=== PATIENT | female | born 1950 | race Caucasian/White ===

== ENCOUNTER 2020-11-12 17:30 | Emergency (ER) | payer MEDICARE, OTHER, SELFPAY ==
[2020-11-12 17:38] VITALS: BP 142/79; PULSE 93; RESP 18; TEMP 36.5; O2SAT 98
[2020-11-12 17:41] VITALS: TEMP 36.5
[2020-11-12 19:44] VITALS: BP 142/80; PULSE 77; RESP 16; O2SAT 97
--- NOTE | 2020-11-12 20:32 | ED.WOUNDLAC ---
HPI - Wound/Laceration General Chief Complaint: Wound/Laceration Stated Complaint: Puncture Would In Calf From Tree Time Seen by Provider: 11/12/20 20:31 Source: patient Mode of arrival: Ambulatory Limitations: no limitations History of Present Illness HPI narrative: 70-year-old female nonsmoker with noncontributory medical history presents with her in the chief complaint of an accidental laceration to her anterior art. She was working with a heavy log which fell and landed on her leg causing a flap like laceration. 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 She denies any fever chills. She has pain with ambulation improvement with rest. She denies numbness, tingling or weakness and otherwise well and free of complaint Onset (ago): hour(s) Extremity Location: Right: lower leg Place: outdoors Patient tetanus UTD: No Context: accidental Associated symptoms: pain Related Data Previous Rx's Medication Instructions Recorded cephalexin 500 mg PO Q6H 7 Days #28 cap 11/12/20 Allergies Allergy/AdvReac Type Severity Reaction Status Date / Time ofloxacin [From Floxin] Allergy Verified 11/12/20 17:41 Corticosteroids AdvReac Verified 11/12/20 17:41 (Glucocorticoids) Review of Systems Constitutional Constitutional: Denies chills, Denies fatigue, Denies fever(s), Denies frequent falls, Denies lethargy and Denies weakness Eyes Eyes: Denies change in vision, Denies eye discharge, Denies irritation and Denies loss of vision ENT Ears, Nose, Mouth, and Throat: Denies change in voice, Denies dizziness, Denies neck pain, Denies sore throat and Denies throat swelling Cardiovascular Cardiovascular: Denies chest pain, Denies irregular heart rhythm, Denies lightheadedness, Denies palpitations, Denies dyspnea, Denies dyspnea on exertion and Denies orthopnea Respiratory Respiratory: Denies cough, Denies dyspnea, Denies dyspnea on exertion and Denies wheezing Gastrointestinal Gastrointestinal: Denies abdominal pain, Denies change in bowel habits, Denies diarrhea, Denies nausea and Denies vomiting Musculoskeletal Musculoskeletal: Denies neck pain and Denies numbness Integumentary/Breasts Skin/Breast: Denies pruritus, Denies erythema, Denies rash and Reports wounds Neurologic Neurologic: Denies behavioral changes, Denies confusion, Denies dizziness, Denies frequent falls, Denies loss of vision, Denies numbness and Denies weakness Psychiatric Psychiatric: Denies anxiety, Denies behavioral changes, Denies confusion, Denies depression, Denies homicidal ideation and Denies suicidal ideation Endocrine Endocrine: Denies fatigue, Denies flushing and Denies palpitations Hematologic/Lymphatic Hematologic/Lymphatic: Denies easy bruising Allergic/Immunologic Allergic/Immunologic: Denies urticaria, Denies throat swelling and Denies wheezing Patient History Smoking Status: Never smoker alcohol intake frequency: 0-2 drinks per day Substance Use Type: does not use Exam Narrative Exam Narrative: GEN: AOx3 and in mild distress EYES: Pupils are equal, round, and reactive to light and accommodation. Extraoccular muscles are intact bilaterally. There is no subconjunctival hemorrhage or exudate. CHEST: Lungs are clear to auscultation bilaterally and free of wheezes, rales, or rhonchi. Heart rate is regular rhythm, there are no murmurs, clicks, rubs, or gallops. There is no chest wall tenderness. ABD: Abdomen is soft and nontender. There is no guarding or rebound. Bowel sounds are normal in all 4 quadrants. There is no mass or organomegaly. EXT: Full painless ROM of all extremities with no loss of sensation or strength. SKIN: 3 x 3 cm flap laceration right anterior mid art. Superficial with very thin skin layer and some tears along the leading edge as well as mild exposure of subcutaneous fat. No foreign bodies noted. Clean wound. No muscle or bone viewed. Otherwise Warm, pink, and dry. No erythema or rash Initial Vital Signs Initial Vital Signs: Vital Signs Temperature 97.7 F 11/12/20 17:38 Pulse Rate 93 H 11/12/20 17:38 Respiratory Rate 18 11/12/20 17:38 Blood Pressure 142/79 H 11/12/20 17:38 Pulse Oximetry 98 11/12/20 17:38 Procedures Laceration Repair Laceration 1: Site: lower extremity Side (If applicable): right Size (cm): 6 Description: flap Depth: simple, single layer Local Anesthetic: lidocaine 1% and with bicarb Amount of anesthesia used (mL): 5 Pre-repair: wound explored, irrigated extensively and deep structures intact Skin layer closed with: nylon Size (cm): 4-0 Number of sutures: 5 Technique: simple, interrupted Subcutaneous layer closed with: vicryl Size: 4-0 Number of sutures: 1 Technique: simple, interrupted Course Orders Ordered: Discontinued Medications Cefazolin Sodium (Cephalexin 250 Mg Prepack) 1 bottle MISC SEEINSTR ONE Stop: 11/12/20 21:32 Last Admin: 11/12/20 21:38 Dose: 500 mg Documented by: KADI Diphtheria/Tetanus/Acell Pertussis (Tet,Diph,Pertuss(Acell),Vac/Pf 0.5 Ml Syringe) 0.5 ml IM .ONCE ONE Stop: 11/12/20 21:03 Last Admin: 11/12/20 21:07 Dose: 0.5 ml Documented by: KADI Lidocaine/Sodium Bicarbonate (Lido 1%/Sod Bicarb 8.4% (10ml) 10 Ml Syringe) 10 ml INJ NOW ONE Stop: 11/12/20 21:03 Last Admin: 11/12/20 21:07 Dose: 10 ml Documented by: KADI Vital Signs Vital signs: Vital Signs - 8 hr 11/12/20 21:52 Pulse Rate 76 Respiratory Rate 16 Blood Pressure 151/83 H Pulse Oximetry 99 Discharge Plan Departure Patient Disposition: Home Clinical Impression: Laceration Instructions: DI for Laceration Repair Activity Restrictions/Additional Instructions: *You have been diagnosed with [avulsion laceration with tetanus update] *What to do: *Take medications as directed * Please keep the wound clean and dry to the best of your ability. Please monitor for signs of infection such as redness to the skin or increasing pain. Have the sutures removed by your doctor in about 7 days. If you are unable to get into your doctor, we would be happy to remove the sutures in that same timeframe. *Follow up with your primary care provider in 2-3 days, call for an appointment. Let them know you were seen in the Emergency Department and that we ask that you be seen in follow up *Return to ER if you should have any new, worsening or concerning symptoms Prescriptions: New cephalexin 500 mg capsule 500 mg PO Q6H 7 Days Qty: 28 RF: 0
[2020-11-12] MEDS: TET,DIPH,PERTUSS(ACELL),VAC/PF 0.5 ML SYRINGE IM (21:07)
[2020-11-12] MEDS: LIDO 1%/SOD BICARB 8.4% (10ML) 10 ML SYRINGE INJ (21:07)
[2020-11-12] MEDS: cephALEXin 250 MG PREPACK 1 BOTTLE MISC (21:38)
[2020-11-12 21:52] VITALS: BP 151/83; PULSE 76; RESP 16; O2SAT 99
== END 2020-11-12 21:52 | disposition home or self-care (01) ==
PROVIDERS: Emergency Provider Emergency Medicine
DX: S81.811A Laceration without foreign body, right lower leg, initial encounter (principal); W22.8XXA Striking against or struck by other objects, initial encounter; Z23 Encounter for immunization
CPT/HCPCS: 12002; 90471; 99283; 99284; 90715

== ENCOUNTER 2023-05-18 10:30 | Outpatient (RCR) | payer MEDICARE, SELFPAY ==
--- NOTE | 2023-05-06 09:00 | PT.OPPOC ---
Physical, Occupational & Speech Therapy At [facility] Current Diagnoses Other chronic pain (05/06/23) Pain in right knee (05/06/23) Pain in left knee (05/06/23) Visit Care Team Role Provider Type Seymour Rollins PA-C Attending Provider Non-Staff Family Provider Primary Care Provider Referring Provider Specialty: Medical Address: [address] [place] [address], [id number] Email: Plan Of Care PT-OP-T Assessment and Plan Start: 05/06/23 08:59 Freq: Status: Active Protocol: Document 05/06/23 09:00 AM (Rec: 05/06/23 16:30 AM [id number]) Physical Therapy Assessment Rehab Potential Rehabilitation Potential Excellent Evaluation Complexity Number of Personal Factors/Comorbidities 0 Number of Body Systems Impaired 1-2 Clinical Presentation at Evaluation Stable Impairments Impairments Activity Tolerance,Balance, Functional Mobility,Pain,ROM, Soft Tissue Mobility,Strength Goals Discomfort Impairment Knee discomfort Impairment Pt reports 7/10 knee discomfort at the worst. Short Term Goal (STG) Pt to report 4/10 knee discomfort at the worst. STG Duration 05/27/23 Site Engineer Goal (LTG) Pt to report 2/10 knee discomfort at the worst. LTG Duration 06/17/23 Knee ROM Impairment Knee ROM Impairment R knee flexion at 132 deg and painful. L at 140 deg Site Engineer Goal (LTG) R=L knee flexion ROM LTG Duration 06/17/23 Squat Impairment Discomfort with squatting. Impairment Pt unable to squat without increase in knee discomfort. Short Term Goal (STG) Pt able to do STS squats without increase in knee discomfort. Pt able to do 15 squats in 30 sec. STG Duration 05/27/23 Site Engineer Goal (LTG) Pt able to do functional squat without increase in knee discomfort. LTG Duration 06/17/23 Kneeling Impairment Kneeling ability Impairment Pt unable to kneel currently secondary to increase in R knee discomfort. Fdc Goal (LTG) Pt able to kneel without increase in R knee discomfort LTG Duration 06/17/23 Assessment Summary Assessment Ashlie Mantilla presents to PT to address bilateral knee pain, with R knee being primary concern today. Pt with hx of bilateral knee arthroplasty surgery in 1995. Pt with recent exacerbation of R knee pain in November 2022. Pt c/o of difficulty with squatting motions and kneeling on R knee . Pt demonstrates limited knee ROM on R compared to L and presentation of edema at R knee. Pt with PTP tenderness at lateral and medial infrapatellar region, though no pain with palpation of patellar tendon. Pt demonstrates good R LE flexibility at hamstrings and hip flexors. Pt given knee desensitization technique ( standing supported weightbearing on R knee at chair). Pt with discomfort with CKC squatting today, though did not demonstrate movement faults. Pt would benefit from continued PT to progress strength and mobility to decrease knee pain with functional tasks. Physical Therapy Plan Frequency and Duration Frequency of Treatment 2x/Week Duration of treatment (weeks) 6 Plan of Care Start Date 05/06/23 Plan of Care End Date 06/17/23 Therapeutic Interventions Therapeutic Interventions Balance Training,Gait Training ,Home Exercise Program,Joint Mobilizations,Manual Therapy, Neuromuscular Re-education, Patient/Caregiver Education, Self-Care/Home Management,Soft Tissue Mobilization, Therapeutic Activities, Therapeutic Exercises Modalities Cold Pack/Ice Massage,Electric Stimulation,Hot Packs, Ultrasound Next Visit Focus/Plan Next Note Type Treatment Note Next Visit Plan Initiate manual techniques to decrease scar tissue restrictions, initiate CKC on shuttle recovery, progress LE strengthening Plan of Care Dates Plan of Care Start Date 05/06/23 Plan of Care End Date 06/17/23 Electronically Signed by: Tami Armando, PT 05/06/23 [id number] If you are in agreement with this Plan of Care, please return a signed and dated copy. I have reviewed this Plan of Care and certify that the skilled therapy services above are required to meet the patient?s needs. Physician Signature Date Printed Name and Credentials Clinical Instructor Signature Printed Name and Credentials
--- NOTE | 2023-05-06 09:00 | PT.OIE ---
Current Diagnoses Other chronic pain (05/06/23) Pain in right knee (05/06/23) Pain in left knee (05/06/23) Visit Care Team Role Provider Type Seymour Rollins PA-C Attending Provider Non-Staff Family Provider Primary Care Provider Referring Provider Specialty: Medical Address: [address] [place] [address], [id number] Email: Physical Therapy Initial Evaluation PT-OP-A Visit Information Start: 05/06/23 08:59 Freq: Status: Active Protocol: Document 05/06/23 09:00 AM (Rec: 05/06/23 16:30 AM [id number]) Out-Patient Physical Therapy Visit Information Visit Information Visit Type Initial Evaluation Visit Start Time 09:03 Visit Stop Time 09:48 Total Visit Minutes 45 Visit Number 1 Number of IRONER HAND Visits 0 Evaluation Information Evaluation Date 05/06/23 PT-OP-B Current Condition Start: 05/06/23 08:59 Freq: Status: Active Protocol: Document 05/06/23 09:00 AM (Rec: 05/06/23 16:30 AM [id number]) Current Condition History of Current Condition Onset Date Chronic with exacerbation in November Current Complaints R knee pain History of Current Condition Bilateral knee pain. Pt has scar tissue on bilateral knees from arthroscopic surgery from 1995. Pt reports that her right knee pain is worse. Pt reports that pain is patellar. Pt exacerbated her R knee pain in November from moving some furniture and twisting her knee while on her knees. Pt would like to avoid TKA at this time. Pt reports pain is associated with movement. At rest, she has no pain. Pt reports that she has bunions at bilateral feet. Pt lives in 2 ten sleep home and goes up and down the stairs a lot and report intermittent pain with steps. Pt does a lot of walking. Future Testing and Treatments Planned No f/u scheduled Prior Functional Status Baseline Function- ADL's Independent Baseline Function- Mobility Independent Current Functional Impairments (Reported) Functional Limitations- ADL's Pt reports difficulty with activities that involve squatting. Pt did CPR training recently and could not kneel on R knee. 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 PT-OP-C Subjective Start: 05/06/23 08:59 Freq: Status: Active Protocol: Document 05/06/23 09:00 AM (Rec: 05/06/23 16:30 AM [id number]) OP-PT Pain Assessment Pain Assessment Grid Paper Pain Assessment Grid Completed Yes Location Bilateral Knee Pain Location Details inferior peripatellar pain bilaterally, R worse than L. Intensity 0 Scale Used Numeric (0 - 10) Description Sharp Description- Other 6-7/10 Frequency Intermittent Pain Aggravating Factors Activity,Stair Climbing, Bending Other Pain Aggravating Factors Difficulty with sit-stand transfers PT-OP-D Balance Start: 05/06/23 08:59 Freq: Status: Active Protocol: Document 05/06/23 09:00 AM (Rec: 05/06/23 16:30 AM [id number]) Balance Tests Single Limb Standing Single Limb- Right 10 sec on R Single Limb- Left 6 sec on L PT-OP-E Functional Tests Start: 05/06/23 08:59 Freq: Status: Active Protocol: Document 05/06/23 09:00 AM (Rec: 05/06/23 16:30 AM [id number]) Functional Tests 30 Second Sit to Stand Test Score 11 Comments 18.5 in hi-low table, pt reports some discomfort PT-OP-K Range of Motion Start: 05/06/23 08:59 Freq: Status: Active Protocol: Document 05/06/23 09:00 AM (Rec: 05/06/23 16:30 AM [id number]) Knee Goniometric Range of Motion Knee Right Patient Position Supine Flexion Active (degrees) 132 Extension Active (degrees) 5 Left Patient Position Supine Flexion Active (degrees) 140 Extension Active (degrees) 5 PT-OP-M Strength Start: 05/06/23 08:59 Freq: Status: Active Protocol: Document 05/06/23 09:00 AM (Rec: 05/06/23 16:30 AM [id number]) Hip Strength Hip Manual Muscle Testing Right Flexion (L2) 4 Good Abduction 4 Good Adduction 4+ Good+ External Rotation 4- Good- Internal Rotation 4- Good- Comments Glute med 4-/5. Pt demonstrates compensation with hip flexors Left Flexion (L2) 4 Good Abduction 4 Good Adduction 4+ Good+ External Rotation 4- Good- Internal Rotation 4- Good- Knee Strength Knee Manual Muscle Testing Right Flexion (S2) 4- Good- Extension (L3) 4 Good Left Flexion (S2) 4- Good- Extension (L3) 4 Good PT-OP-Q Treatments Start: 05/06/23 08:59 Freq: Status: Active Protocol: Document 05/06/23 09:00 AM (Rec: 05/06/23 16:30 AM [id number]) Therapeutic Exercises Supine Exercises SLR Supine Exercise Name SLR Side right Reps/Minutes x10 Sidelying Exercises Clamshell Sidelying Exercise Name Clamshell Side right Reps/Minutes x10 PT-OP-T Assessment and Plan Start: 05/06/23 08:59 Freq: Status: Active Protocol: Document 05/06/23 09:00 AM (Rec: 05/06/23 16:30 AM [id number]) Physical Therapy Assessment Rehab Potential Rehabilitation Potential Excellent Evaluation Complexity Number of Personal Factors/Comorbidities 0 Number of Body Systems Impaired 1-2 Clinical Presentation at Evaluation Stable Impairments Impairments Activity Tolerance,Balance, Functional Mobility,Pain,ROM, Soft Tissue Mobility,Strength Goals Discomfort Impairment Knee discomfort Impairment Pt reports 7/10 knee discomfort at the worst. Short Term Goal (STG) Pt to report 4/10 knee discomfort at the worst. STG Duration 05/27/23 Brazer Resistance Goal (LTG) Pt to report 2/10 knee discomfort at the worst. LTG Duration 06/17/23 Knee ROM Impairment Knee ROM Impairment R knee flexion at 132 deg and painful. L at 140 deg Brazer Resistance Goal (LTG) R=L knee flexion ROM LTG Duration 06/17/23 Squat Impairment Discomfort with squatting. Impairment Pt unable to squat without increase in knee discomfort. Short Term Goal (STG) Pt able to do STS squats without increase in knee discomfort. Pt able to do 15 squats in 30 sec. STG Duration 05/27/23 Brazer Resistance Goal (LTG) Pt able to do functional squat without increase in knee discomfort. LTG Duration 06/17/23 Kneeling Impairment Kneeling ability Impairment Pt unable to kneel currently secondary to increase in R knee discomfort. Fci Goal (LTG) Pt able to kneel without increase in R knee discomfort LTG Duration 06/17/23 Assessment Summary Assessment Ashlie Mantilla presents to PT to address bilateral knee pain, with R knee being primary concern today. Pt with hx of bilateral knee arthroplasty surgery in 1995. Pt with recent exacerbation of R knee pain in November 2022. Pt c/o of difficulty with squatting motions and kneeling on R knee . Pt demonstrates limited knee ROM on R compared to L and presentation of edema at R knee. Pt with PTP tenderness at lateral and medial infrapatellar region, though no pain with palpation of patellar tendon. Pt demonstrates good R LE flexibility at hamstrings and hip flexors. Pt given knee desensitization technique ( standing supported weightbearing on R knee at chair). Pt with discomfort with CKC squatting today, though did not demonstrate movement faults. Pt would benefit from continued PT to progress strength and mobility to decrease knee pain with functional tasks. Physical Therapy Plan Frequency and Duration Frequency of Treatment 2x/Week Duration of treatment (weeks) 6 Plan of Care Start Date 05/06/23 Plan of Care End Date 06/17/23 Therapeutic Interventions Therapeutic Interventions Balance Training,Gait Training ,Home Exercise Program,Joint Mobilizations,Manual Therapy, Neuromuscular Re-education, Patient/Caregiver Education, Self-Care/Home Management,Soft Tissue Mobilization, Therapeutic Activities, Therapeutic Exercises Modalities Cold Pack/Ice Massage,Electric Stimulation,Hot Packs, Ultrasound Next Visit Focus/Plan Next Note Type Treatment Note Next Visit Plan Initiate manual techniques to decrease scar tissue restrictions, initiate CKC on shuttle recovery, progress LE strengthening
--- NOTE | 2023-05-08 15:14 | PT.OTN ---
Current Diagnoses Other chronic pain (05/08/23) Pain in right knee (05/08/23) Pain in left knee (05/08/23) Physical Therapy Treatment Note PT-OP-A Visit Information Start: 05/06/23 08:59 Freq: Status: Active Protocol: Document 05/08/23 15:14 AM (Rec: 05/08/23 17:41 AM [id number]) Out-Patient Physical Therapy Visit Information Visit Information Visit Type Treatment Note Visit Start Time 15:15 Visit Stop Time 16:00 Total Visit Minutes 45 Visit Number 2 Number of FISCAL OFFICER Visits 0 Precautions Precautions tape/latex allergy PT-OP-B Current Condition Start: 05/06/23 08:59 Freq: Status: Active Protocol: Document 05/08/23 15:14 AM (Rec: 05/08/23 17:41 AM [id number]) Current Condition History of Current Condition Onset Date Chronic with exacerbation in November Current Complaints R knee pain History of Current Condition Bilateral knee pain. Pt has scar tissue on bilateral knees from arthroscopic surgery from 1995. Pt reports that her right knee pain is worse. Pt reports that pain is patellar. Pt exacerbated her R knee pain in November from moving some furniture and twisting her knee while on her knees. Pt would like to avoid TKA at this time. Pt reports pain is associated with movement. At rest, she has no pain. Pt reports that she has bunions at bilateral feet. Pt lives in [address] [place] [address] home and goes up and down the stairs a lot and report intermittent pain with steps. Pt does a lot of walking. Future Testing and Treatments Planned No f/u scheduled PT-OP-C Subjective Start: 05/06/23 08:59 Freq: Status: Active Protocol: Document 05/08/23 15:14 AM (Rec: 05/08/23 17:41 AM [id number]) OP-PT Subjective Patient Comments Patient Comments Pt reports that she was a little sore after the IE. Pt reports that she required a tylenol that day. PT-OP-D Balance Start: 05/06/23 08:59 Freq: Status: Active Protocol: Document 05/06/23 09:00 AM (Rec: 05/06/23 16:30 AM [id number]) Balance Tests Single Limb Standing Single Limb- Right 10 sec on R Single Limb- Left 6 sec on L PT-OP-E Functional Tests Start: 05/06/23 08:59 Freq: Status: Active Protocol: Document 05/06/23 09:00 AM (Rec: 05/06/23 16:30 AM [id number]) Functional Tests 30 Second Sit to Stand Test Score 11 Comments 18.5 in hi-low table, pt reports some discomfort PT-OP-K Range of Motion Start: 05/06/23 08:59 Freq: Status: Active Protocol: Document 05/06/23 09:00 AM (Rec: 05/06/23 16:30 AM [id number]) Knee Goniometric Range of Motion Knee Right Patient Position Supine Flexion Active (degrees) 132 Extension Active (degrees) 5 Left Patient Position Supine Flexion Active (degrees) 140 Extension Active (degrees) 5 PT-OP-M Strength Start: 05/06/23 08:59 Freq: Status: Active Protocol: Document 05/06/23 09:00 AM (Rec: 05/06/23 16:30 AM [id number]) Hip Strength Hip Manual Muscle Testing Right Flexion (L2) 4 Good Abduction 4 Good Adduction 4+ Good+ External Rotation 4- Good- Internal Rotation 4- Good- Comments Glute med 4-/5. Pt demonstrates compensation with hip flexors Left Flexion (L2) 4 Good Abduction 4 Good Adduction 4+ Good+ External Rotation 4- Good- Internal Rotation 4- Good- Knee Strength Knee Manual Muscle Testing Right Flexion (S2) 4- Good- Extension (L3) 4 Good Left Flexion (S2) 4- Good- Extension (L3) 4 Good PT-OP-Q Treatments Start: 05/06/23 08:59 Freq: Status: Active Protocol: Document 05/08/23 15:14 AM (Rec: 05/08/23 17:41 AM [id number]) Cardio Equipment Bicycle (Upright) Duration (Minutes) 5 Resistance 11 Seat Position 2 Gym Equipment Shuttle Recovery Unilateral squat Resistance 1 giordano, 1 navy Reps/Time x30 ea LE Bilateral squat Details Bilateral squat Resistance 2 navy 1 giordano Reps/Time x30 Therapeutic Exercises Supine Exercises SLR Supine Exercise Name SLR Side bilateral Resistance 2# Reps/Minutes 2x10 Sidelying Exercises Clamshell Sidelying Exercise Name Clamshell Side bilateral Reps/Minutes x20 Standing Exercises Resisted side step Standing Exercise Name Side step Side bilateral Resistance [place] TB Reps/Minutes 2x20 ft ea direction Comments Pt with reported pain at ankles secondary to pressure Manual Therapy Treatment Soft Tissue Mobilization Knee STM Body Location distal ITB, distal quad, infrapatellar/patellar tendon Mobilization Type Cross-Friction,Instrument Assisted,Myofascial Release Intensity/Depth Moderate Body Position Hooklying Comments Scraping tool used Manual Techniques Walker hip flexor stretch Type Hip flexor stretch Body Location Jose LE Body Position Supine Reps/Duration x30 sec ea PT-OP-T Assessment and Plan Start: 05/06/23 08:59 Freq: Status: Active Protocol: Document 05/08/23 15:14 AM (Rec: 05/08/23 17:41 AM [id number]) Physical Therapy Assessment Impairments Impairments Activity Tolerance,Balance, Functional Mobility,Pain,ROM, Soft Tissue Mobility,Strength Goals Discomfort Impairment Knee discomfort Impairment Pt reports 7/10 knee discomfort at the worst. Short Term Goal (STG) Pt to report 4/10 knee discomfort at the worst. STG Duration 05/27/23 Snf Goal (LTG) Pt to report 2/10 knee discomfort at the worst. LTG Duration 06/17/23 Knee ROM Impairment Knee ROM Impairment R knee flexion at 132 deg and painful. L at 140 deg Snf Goal (LTG) R=L knee flexion ROM LTG Duration 06/17/23 Squat Impairment Discomfort with squatting. Impairment Pt unable to squat without increase in knee discomfort. Short Term Goal (STG) Pt able to do STS squats without increase in knee discomfort. Pt able to do 15 squats in 30 sec. STG Duration 05/27/23 Snf Goal (LTG) Pt able to do functional squat without increase in knee discomfort. LTG Duration 06/17/23 Kneeling Impairment Kneeling ability Impairment Pt unable to kneel currently secondary to increase in R knee discomfort. Plasticator Goal (LTG) Pt able to kneel without increase in R knee discomfort LTG Duration 06/17/23 Assessment Summary Assessment Pt with reported decrease in symptoms following STM. Pt demonstrates tenderness at distal ITB and lateral quad with STM. Pt reported slight increase in symptoms with shuttle unilateral squats on R . Pt required manual cueing to prevent trunk rotation with BKFO. Pt will return to PT next week to continue to progress strength and mobility as tolerated to decrease knee pain and improve function. Physical Therapy Plan Frequency and Duration Frequency of Treatment 2x/Week Duration of treatment (weeks) 6 Plan of Care Start Date 05/06/23 Plan of Care End Date 06/17/23 Therapeutic Interventions Therapeutic Interventions Balance Training,Gait Training ,Home Exercise Program,Joint Mobilizations,Manual Therapy, Neuromuscular Re-education, Patient/Caregiver Education, Self-Care/Home Management,Soft Tissue Mobilization, Therapeutic Activities, Therapeutic Exercises Modalities Cold Pack/Ice Massage,Electric Stimulation,Hot Packs, Ultrasound Next Visit Focus/Plan Next Note Type Treatment Note Next Visit Plan Continue manual techniques to decrease scar tissue restrictions, initiate CKC on shuttle recovery, progress LE strengthening, higher level balance
--- NOTE | 2023-05-11 16:01 | PT.OTN ---
Current Diagnoses Other chronic pain (05/11/23) Pain in right knee (05/11/23) Pain in left knee (05/11/23) Physical Therapy Treatment Note PT-OP-A Visit Information Start: 05/06/23 08:59 Freq: Status: Active Protocol: Document 05/11/23 16:01 AM (Rec: 05/11/23 16:58 AM [id number]) Out-Patient Physical Therapy Visit Information Visit Information Visit Type Treatment Note Visit Start Time 16:02 Visit Stop Time 16:50 Total Visit Minutes 48 Visit Number 3 Number of REGIONAL OPERATIONS DIRECTOR Visits 0 PT-OP-B Current Condition Start: 05/06/23 08:59 Freq: Status: Active Protocol: Document 05/11/23 16:01 AM (Rec: 05/11/23 16:58 AM [id number]) Current Condition History of Current Condition Onset Date Chronic with exacerbation in November Current Complaints R knee pain History of Current Condition Bilateral knee pain. Pt has scar tissue on bilateral knees from arthroscopic surgery from 1995. Pt reports that her right knee pain is worse. Pt reports that pain is patellar. Pt exacerbated her R knee pain in November from moving some furniture and twisting her knee while on her knees. Pt would like to avoid TKA at this time. Pt reports pain is associated with movement. At rest, she has no pain. Pt reports that she has bunions at bilateral feet. Pt lives in [address] home and goes up and down the stairs a lot and report intermittent pain with steps. Pt does a lot of walking. Future Testing and Treatments Planned No f/u scheduled PT-OP-C Subjective Start: 05/06/23 08:59 Freq: Status: Active Protocol: Document 05/11/23 16:01 AM (Rec: 05/11/23 16:58 AM [id number]) OP-PT Subjective Patient Comments Patient Comments Pt reports pain is more on L knee today. Pt reports feeling sore after last session. PT-OP-D Balance Start: 05/06/23 08:59 Freq: Status: Active Protocol: Document 05/06/23 09:00 AM (Rec: 05/06/23 16:30 AM [id number]) Balance Tests Single Limb Standing Single Limb- Right 10 sec on R Single Limb- Left 6 sec on L PT-OP-E Functional Tests Start: 05/06/23 08:59 Freq: Status: Active Protocol: Document 05/06/23 09:00 AM (Rec: 05/06/23 16:30 AM [id number]) Functional Tests 30 Second Sit to Stand Test Score 11 Comments 18.5 in hi-low table, pt reports some discomfort PT-OP-K Range of Motion Start: 05/06/23 08:59 Freq: Status: Active Protocol: Document 05/06/23 09:00 AM (Rec: 05/06/23 16:30 AM [id number]) Knee Goniometric Range of Motion Knee Right Patient Position Supine Flexion Active (degrees) 132 Extension Active (degrees) 5 Left Patient Position Supine Flexion Active (degrees) 140 Extension Active (degrees) 5 PT-OP-M Strength Start: 05/06/23 08:59 Freq: Status: Active Protocol: Document 05/06/23 09:00 AM (Rec: 05/06/23 16:30 AM [id number]) Hip Strength Hip Manual Muscle Testing Right Flexion (L2) 4 Good Abduction 4 Good Adduction 4+ Good+ External Rotation 4- Good- Internal Rotation 4- Good- Comments Glute med 4-/5. Pt demonstrates compensation with hip flexors Left Flexion (L2) 4 Good Abduction 4 Good Adduction 4+ Good+ External Rotation 4- Good- Internal Rotation 4- Good- Knee Strength Knee Manual Muscle Testing Right Flexion (S2) 4- Good- Extension (L3) 4 Good Left Flexion (S2) 4- Good- Extension (L3) 4 Good PT-OP-Q Treatments Start: 05/06/23 08:59 Freq: Status: Active Protocol: Document 05/11/23 16:01 AM (Rec: 05/11/23 16:58 AM [id number]) Cardio Equipment Bicycle (Upright) Duration (Minutes) 5 Resistance 11 Seat Position 2 Therapeutic Exercises Supine Exercises SAQ Supine Exercise Name SAQ Side bilateral Resistance 2# Equipment Used foam roll Reps/Minutes x10 Bridge Supine Exercise Name Bridge Side bilateral Reps/Minutes x15 SLR Supine Exercise Name SLR Side bilateral Resistance 2# Reps/Minutes 2x10 Sidelying Exercises Clamshell Sidelying Exercise Name Clamshell Side bilateral Resistance 2# Reps/Minutes x20 Manual Therapy Treatment Soft Tissue Mobilization Knee STM Body Location Jose rolling, L patellar tendon , infrapatellar, ITB Mobilization Type Cross-Friction,Myofascial Release,Rolling Intensity/Depth Moderate Comments Supine and hooklying Manual Techniques Walker hip flexor stretch Type Hip flexor stretch Body Location Jose LE Reps/Duration 2x30 sec ea LE PT-OP-T Assessment and Plan Start: 05/06/23 08:59 Freq: Status: Active Protocol: Document 05/11/23 16:01 AM (Rec: 05/11/23 16:58 AM [id number]) Physical Therapy Assessment Impairments Impairments Activity Tolerance,Balance, Functional Mobility,Pain,ROM, Soft Tissue Mobility,Strength Goals Discomfort Impairment Knee discomfort Impairment Pt reports 7/10 knee discomfort at the worst. Short Term Goal (STG) Pt to report 4/10 knee discomfort at the worst. STG Duration 05/27/23 Black Leather Trimmer Goal (LTG) Pt to report 2/10 knee discomfort at the worst. LTG Duration 06/17/23 Knee ROM Impairment Knee ROM Impairment R knee flexion at 132 deg and painful. L at 140 deg Black Leather Trimmer Goal (LTG) R=L knee flexion ROM LTG Duration 06/17/23 Squat Impairment Discomfort with squatting. Impairment Pt unable to squat without increase in knee discomfort. Short Term Goal (STG) Pt able to do STS squats without increase in knee discomfort. Pt able to do 15 squats in 30 sec. STG Duration 05/27/23 Senior Living Goal (LTG) Pt able to do functional squat without increase in knee discomfort. LTG Duration 06/17/23 Kneeling Impairment Kneeling ability Impairment Pt unable to kneel currently secondary to increase in R knee discomfort. Black Leather Trimmer Goal (LTG) Pt able to kneel without increase in R knee discomfort LTG Duration 06/17/23 Assessment Summary Assessment Pt with reported decrease in symptoms following tx session. Pt with tenderness at jose quads. Pt with stiffness at jose hip flexors. Pt would benefit from continued PT to progress LE exercises to improve LE strength and mobility for improved tolerance to functional activities. Physical Therapy Plan Frequency and Duration Frequency of Treatment 2x/Week Duration of treatment (weeks) 6 Plan of Care Start Date 05/06/23 Plan of Care End Date 06/17/23 Therapeutic Interventions Therapeutic Interventions Balance Training,Gait Training ,Home Exercise Program,Joint Mobilizations,Manual Therapy, Neuromuscular Re-education, Patient/Caregiver Education, Self-Care/Home Management,Soft Tissue Mobilization, Therapeutic Activities, Therapeutic Exercises Modalities Cold Pack/Ice Massage,Electric Stimulation,Hot Packs, Ultrasound Next Visit Focus/Plan Next Note Type Treatment Note Next Visit Plan Continue manual techniques to decrease scar tissue restrictions, initiate CKC on shuttle recovery, progress LE strengthening, higher level balance
--- NOTE | 2023-05-18 10:36 | PT.OTN ---
Current Diagnoses Other chronic pain (05/18/23) Pain in right knee (05/18/23) Pain in left knee (05/18/23) Physical Therapy Treatment Note PT-OP-A Visit Information Start: 05/06/23 08:59 Freq: Status: Active Protocol: Document 05/18/23 10:36 AM (Rec: 05/18/23 11:36 AM [id number]) Out-Patient Physical Therapy Visit Information Visit Information Visit Type Treatment Note Visit Start Time 10:36 Visit Stop Time 11:21 Total Visit Minutes 45 Visit Number 4 Number of CHAIN OFFBEARER Visits 0 Precautions Precautions tape/latex allergy PT-OP-B Current Condition Start: 05/06/23 08:59 Freq: Status: Active Protocol: Document 05/18/23 10:36 AM (Rec: 05/18/23 11:36 AM [id number]) Current Condition History of Current Condition Onset Date Chronic with exacerbation in November Current Complaints R knee pain History of Current Condition Bilateral knee pain. Pt has scar tissue on bilateral knees from arthroscopic surgery from 1995. Pt reports that her right knee pain is worse. Pt reports that pain is patellar. Pt exacerbated her R knee pain in November from moving some furniture and twisting her knee while on her knees. Pt would like to avoid TKA at this time. Pt reports pain is associated with movement. At rest, she has no pain. Pt reports that she has bunions at bilateral feet. Pt lives in [address] [place] [address] home and goes up and down the stairs a lot and report intermittent pain with steps. Pt does a lot of walking. Future Testing and Treatments Planned No f/u scheduled PT-OP-C Subjective Start: 05/06/23 08:59 Freq: Status: Active Protocol: Document 05/18/23 10:36 AM (Rec: 05/18/23 11:36 AM [id number]) OP-PT Subjective Patient Comments Patient Comments Pt reports that she feels that her swelling has gone down. Pt reports decreased pain. Pt got a trigger point roller for knee. PT-OP-D Balance Start: 05/06/23 08:59 Freq: Status: Active Protocol: Document 05/06/23 09:00 AM (Rec: 05/06/23 16:30 AM [id number]) Balance Tests Single Limb Standing Single Limb- Right 10 sec on R Single Limb- Left 6 sec on L PT-OP-E Functional Tests Start: 05/06/23 08:59 Freq: Status: Active Protocol: Document 05/06/23 09:00 AM (Rec: 05/06/23 16:30 AM [id number]) Functional Tests 30 Second Sit to Stand Test Score 11 Comments 18.5 in hi-low table, pt reports some discomfort PT-OP-K Range of Motion Start: 05/06/23 08:59 Freq: Status: Active Protocol: Document 05/06/23 09:00 AM (Rec: 05/06/23 16:30 AM [id number]) Knee Goniometric Range of Motion Knee Right Patient Position Supine Flexion Active (degrees) 132 Extension Active (degrees) 5 Left Patient Position Supine Flexion Active (degrees) 140 Extension Active (degrees) 5 PT-OP-M Strength Start: 05/06/23 08:59 Freq: Status: Active Protocol: Document 05/06/23 09:00 AM (Rec: 05/06/23 16:30 AM [id number]) Hip Strength Hip Manual Muscle Testing Right Flexion (L2) 4 Good Abduction 4 Good Adduction 4+ Good+ External Rotation 4- Good- Internal Rotation 4- Good- Comments Glute med 4-/5. Pt demonstrates compensation with hip flexors Left Flexion (L2) 4 Good Abduction 4 Good Adduction 4+ Good+ External Rotation 4- Good- Internal Rotation 4- Good- Knee Strength Knee Manual Muscle Testing Right Flexion (S2) 4- Good- Extension (L3) 4 Good Left Flexion (S2) 4- Good- Extension (L3) 4 Good PT-OP-Q Treatments Start: 05/06/23 08:59 Freq: Status: Active Protocol: Document 05/18/23 10:36 AM (Rec: 05/18/23 11:36 AM [id number]) Cardio Equipment Bicycle (Upright) Duration (Minutes) 5 Resistance 11 Seat Position 2 Therapeutic Exercises Supine Exercises SAQ Supine Exercise Name SAQ Side bilateral Resistance 3# Equipment Used foam roll Reps/Minutes 2x10 Bridge Supine Exercise Name Bridge Side bilateral Reps/Minutes x15 SLR Supine Exercise Name SLR Side bilateral Resistance 3# Reps/Minutes 2x10 Sidelying Exercises Clamshell Sidelying Exercise Name Clamshell Side bilateral Resistance 2# Reps/Minutes x20 Standing Exercises Resisted side step Standing Exercise Name Side step Side bilateral Resistance GTB Reps/Minutes 2x20 ft ea direction Comments Pt with reported pain at ankles secondary to pressure Manual Therapy Treatment Soft Tissue Mobilization Knee STM Body Location R patellar tendon, infrapatellar Mobilization Type Cross-Friction,Myofascial Release,Rolling Intensity/Depth Moderate Body Position Hooklying Manual Techniques Walker hip flexor stretch Type Hip flexor stretch Body Location Jose LE Reps/Duration 2x30 sec ea LE PT-OP-T Assessment and Plan Start: 05/06/23 08:59 Freq: Status: Active Protocol: Document 05/18/23 10:36 AM (Rec: 05/18/23 11:36 AM [id number]) Physical Therapy Assessment Impairments Impairments Activity Tolerance,Balance, Functional Mobility,Pain,ROM, Soft Tissue Mobility,Strength Goals Discomfort Impairment Knee discomfort Impairment Pt reports 7/10 knee discomfort at the worst. Short Term Goal (STG) Pt to report 4/10 knee discomfort at the worst. STG Duration 05/27/23 Manager Labor Relations Goal (LTG) Pt to report 2/10 knee discomfort at the worst. LTG Duration 06/17/23 Knee ROM Impairment Knee ROM Impairment R knee flexion at 132 deg and painful. L at 140 deg Manager Labor Relations Goal (LTG) R=L knee flexion ROM LTG Duration 06/17/23 Squat Impairment Discomfort with squatting. Impairment Pt unable to squat without increase in knee discomfort. Short Term Goal (STG) Pt able to do STS squats without increase in knee discomfort. Pt able to do 15 squats in 30 sec. STG Duration 05/27/23 Manager Labor Relations Goal (LTG) Pt able to do functional squat without increase in knee discomfort. LTG Duration 06/17/23 Kneeling Impairment Kneeling ability Impairment Pt unable to kneel currently secondary to increase in R knee discomfort. Manager Labor Relations Goal (LTG) Pt able to kneel without increase in R knee discomfort LTG Duration 06/17/23 Assessment Summary Assessment Pt without increase in symptoms throughout tx session today. Pt demonstrates improving hip flexor length. Pt required min cueing for pelvic stability with clamshells. Pt would benefit from continued PT to progress jose LE strength and mobility to decrease pain with functional/recreational activites. Physical Therapy Plan Frequency and Duration Frequency of Treatment 2x/Week Duration of treatment (weeks) 6 Plan of Care Start Date 05/06/23 Plan of Care End Date 06/17/23 Therapeutic Interventions Therapeutic Interventions Balance Training,Gait Training ,Home Exercise Program,Joint Mobilizations,Manual Therapy, Neuromuscular Re-education, Patient/Caregiver Education, Self-Care/Home Management,Soft Tissue Mobilization, Therapeutic Activities, Therapeutic Exercises Modalities Cold Pack/Ice Massage,Electric Stimulation,Hot Packs, Ultrasound Next Visit Focus/Plan Next Note Type Treatment Note Next Visit Plan Continue manual techniques to decrease scar tissue restrictions, initiate CKC on shuttle recovery, progress LE strengthening, higher level balance
--- NOTE | 2023-06-12 17:36 | PT.OPDS ---
Current Diagnoses Other chronic pain (05/18/23) Pain in right knee (05/18/23) Pain in left knee (05/18/23) Visit Care Team Role Provider Type Seymour Rollins PA-C Attending Provider Non-Staff Family Provider Primary Care Provider Referring Provider Specialty: Medical Address: [address] [place] [address], [id number] Email: Visit Number Visit Number 4 Discharge Summary PT-OP-B Current Condition Start: 05/06/23 08:59 Freq: Status: Active Protocol: Document 05/18/23 10:36 AM (Rec: 05/18/23 11:36 AM [id number]) Current Condition History of Current Condition Onset Date Chronic with exacerbation in November Current Complaints R knee pain History of Current Condition Bilateral knee pain. Pt has scar tissue on bilateral knees from arthroscopic surgery from 1995. Pt reports that her right knee pain is worse. Pt reports that pain is patellar. Pt exacerbated her R knee pain in November from moving some furniture and twisting her knee while on her knees. Pt would like to avoid TKA at this time. Pt reports pain is associated with movement. At rest, she has no pain. Pt reports that she has bunions at bilateral feet. Pt lives in [address] home and goes up and down the stairs a lot and report intermittent pain with steps. Pt does a lot of walking. Future Testing and Treatments Planned No f/u scheduled PT-OP-C Subjective Start: 05/06/23 08:59 Freq: Status: Active Protocol: Document 05/18/23 10:36 AM (Rec: 05/18/23 11:36 AM [id number]) OP-PT Subjective Patient Comments Patient Comments Pt reports that she feels that her swelling has gone down. Pt reports decreased pain. Pt got a trigger point roller for knee. PT-OP-D Balance Start: 05/06/23 08:59 Freq: Status: Active Protocol: Document 05/06/23 09:00 AM (Rec: 05/06/23 16:30 AM [id number]) Balance Tests Single Limb Standing Single Limb- Right 10 sec on R Single Limb- Left 6 sec on L PT-OP-E Functional Tests Start: 05/06/23 08:59 Freq: Status: Active Protocol: Document 05/06/23 09:00 AM (Rec: 05/06/23 16:30 AM [id number]) Functional Tests 30 Second Sit to Stand Test Score 11 Comments 18.5 in hi-low table, pt reports some discomfort PT-OP-K Range of Motion Start: 05/06/23 08:59 Freq: Status: Active Protocol: Document 05/06/23 09:00 AM (Rec: 05/06/23 16:30 AM [id number]) Knee Goniometric Range of Motion Knee Right Patient Position Supine Flexion Active (degrees) 132 Extension Active (degrees) 5 Left Patient Position Supine Flexion Active (degrees) 140 Extension Active (degrees) 5 PT-OP-M Strength Start: 05/06/23 08:59 Freq: Status: Active Protocol: Document 05/06/23 09:00 AM (Rec: 05/06/23 16:30 AM [id number]) Hip Strength Hip Manual Muscle Testing Right Flexion (L2) 4 Good Abduction 4 Good Adduction 4+ Good+ External Rotation 4- Good- Internal Rotation 4- Good- Comments Glute med 4-/5. Pt demonstrates compensation with hip flexors Left Flexion (L2) 4 Good Abduction 4 Good Adduction 4+ Good+ External Rotation 4- Good- Internal Rotation 4- Good- Knee Strength Knee Manual Muscle Testing Right Flexion (S2) 4- Good- Extension (L3) 4 Good Left Flexion (S2) 4- Good- Extension (L3) 4 Good PT-OP-T Assessment and Plan Start: 05/06/23 08:59 Freq: Status: Active Protocol: Document 06/12/23 17:36 AM (Rec: 06/12/23 17:37 AM [id number]) Physical Therapy Plan Discharge Physical Therapy Discharge Reasons No Longer Attending PT Discharge Comments Pt did not schedule future appointments. PT called and left v.m. to schedule further appts, though not returned
== END 2023-06-15 14:42 | disposition home or self-care (01) ==
LOC: PHYS 10:30
PROVIDERS: Absent Provider Physician Assistant; Family Provider Physician Assistant; PCP Physician Assistant; Referring Provider Physician Assistant; Visit Provider Physician Assistant
DX: M25.561 Pain in right knee (principal); M25.562 Pain in left knee; G89.29 Other chronic pain
CPT/HCPCS: 97110; 97140; 97161